=== PATIENT | female | born 2000 | race Caucasian/White ===

== ENCOUNTER 2022-06-15 18:27 | Emergency (ER) | payer MEDICAID ==
[~2022-06-15] VITALS: Ht 160 cm; Wt 75.0 kg
[~2022-06-15 18:27] MED LIST: IBU800 M1 PO; NORCO 325 MG-51 TAB PO
[2022-06-15 18:30] VITALS: TEMP 97.5
[2022-06-15 19:50] VITALS: BP 123/62; PULSE 80
== END 2022-06-15 19:52 | disposition home or self-care (01) ==
LOC: COL.ER 18:27
DX: S61.215A Laceration without foreign body of left ring finger without damage to nail, initial encounter (principal); S61.213A Laceration without foreign body of left middle finger without damage to nail, initial encounter; Z28.310 Unvaccinated for COVID-19; W26.0XXA Contact with knife, initial encounter